=== PATIENT | female | born 1940 | race Caucasian/White ===

== ENCOUNTER 2016-04-25 11:54 | Emergency (ER) | payer BC ==
--- NOTE | 2016-04-25 12:24 | ER Document Report ---
ED Medical Screen (RME) - General Chief Complaint: Breathing Difficulty Stated Complaint: DIFFICULTY BREATHING Notes: h/o lung ca stage 4 h/o pleural and pericardial effusion Monday dyspnea and SUTHER[place], wheezing pleurx removed January on left side, never had one on her right I have greeted and performed a rapid initial assessment of this patient. A comprehensive ED assessment and evaluation of the patient, analysis of test results and completion of the medical decision making process will be conducted by additional ED providers. TRAVEL OUTSIDE OF THE [place] IN LAST 30 DAYS: No - Related Data Allergies/Adverse Reactions: No Known Allergies Allergy (Verified 04/25/16 12:21) Past Medical History - Past Medical History Cardiac Medical History: Reports: Hx Hypertension - on meds Denies: Hx Coronary Artery Disease, Hx Heart Attack Pulmonary Medical History: Reports: Hx Bronchitis, Hx COPD, Hx Pneumonia - 2013 Denies: Hx Asthma Neurological Medical History: Denies: Hx Cerebrovascular Accident, Hx Seizures Malignancy Medical History: Reports: Hx Lung Cancer - Stage III Musculoskeltal Medical History: Denies Hx Arthritis Psychiatric Medical History: Reports: Hx Depression Past Surgical History: Reports: Hx Vascular Surgery - Port-A-Cath placement - Immunizations Hx Diphtheria, Pertussis, Tetanus Vaccination: Yes Physical Exam - Vital signs Vitals: Temp Pulse Resp BP Pulse Ox 97.7 F 76 18 143/81 H 93 04/25/16 12:19 04/25/16 12:19 04/25/16 12:19 04/25/16 12:19 04/25/16 12:19 Course - Vital Signs Vital signs: Temp Pulse Resp BP Pulse Ox 97.7 F 76 18 143/81 H 93 04/25/16 12:19 04/25/16 12:19 04/25/16 12:19 04/25/16 12:19 04/25/16 12:19
[2016-04-25 12:45] LABS: ABSOLUTE LYMPHOCYTES (AUTO) 0.5 10^3/uL (0.5-4.7); ABSOLUTE MONOCYTES (AUTO) 0.7 10^3/uL (0.1-1.4); ABSOLUTE NEUT (AUTO) 3.8 10^3/uL (1.7-8.2); BASOPHILS % (AUTO) 0.8 % (0-2); EOSINOPHILS % (AUTO) 0.5 % (0-6); HEMATOCRIT 32.8 % (36.0-47.0); HEMOGLOBIN 10.9 g/dL (12.0-15.5); HGB HCT DIFFERENCE -0.1; LYMPHOCYTES % (AUTO) 9.5 % (13-45); MEAN CORPUSCULAR HEMOGLOBIN 31.3 pg (27.0-33.4); MEAN CORPUSCULAR HGB CONC 33.2 g/dL (32.0-36.0); MEAN CORPUSCULAR VOLUME 94 fl (80-97); MONOCYTES % (AUTO) 13.9 % (3-13); RED BLOOD COUNT 3.48 10^6/uL (3.72-5.28); RED CELL DISTRIBUTION WIDTH 16.5 % (11.5-14.0); SEGMENTED NEUTROPHILS % (AUTO) 75.3 % (42-78)
[2016-04-25 13:00] LABS: ALANINE AMINOTRANSFERASE 20 U/L (9-52); ALBUMIN 3.5 g/dL (3.5-5.0); ALKALINE PHOSPHATASE 81 U/L (38-126); ANION GAP 8 (5-19); ASPARTATE AMINO TRANSFERASE 17 U/L (14-36); BILIRUBIN,TOTAL 0.9 mg/dL (0.2-1.3); BLOOD UREA NITROGEN 9 mg/dL (7-20); CARBON DIOXIDE 32 mmol/L (22-30); CHLORIDE 99 mmol/L (98-107); CREATININE RESULT 0.69 mg/dL (0.52-1.25); GLUCOSE 92 mg/dL (75-110); POTASSIUM 4.3 mmol/L (3.6-5.0); SODIUM 138.8 mmol/L (137-145); TOTAL PROTEIN 6.4 g/dL (6.3-8.2)
[2016-04-25] MEDS ORDERED: IPRATROPIUM/ALBUTEROL 0.5-2.5 MG/3 ML AMPUL NEB ONE (14:20)
--- NOTE | 2016-04-25 14:22 | ER Document Report ---
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 Patient presents with progressive dyspnea on exertion over the past 3 days. She does have a nonproductive cough. She denies any fever. Her last chemotherapy was approximately [address] Membreno's office. TRAVEL OUTSIDE OF THE [place] IN LAST 30 DAYS: No - HPI Patient complains to provider of: COPD Onset: Other - Last 3 days Duration: No: Better, Continuous, Gone now, Intermittent episodes, Worse/ persistent Initiating Event: No: Allergy, Aspiration/Choking, Exertion, Exposure to chemicals, Exposure to dust, Exposure to fumes, Exposure to mold, Exposure to smoke, Out of meds, Sports/exercise, URI, Other Quality of pain: No pain Severity: None Pain Level: Denies Short of Breath: Moderate Chest pain/discomfort: Constant Cough: Nonproductive Sputum amount: denies: None, Scant, Small, Moderate, Large, Copious Sputum color: denies: Brown, Clear, Creamy, Valderrama, Green, Benkelman tinged, Red (blood ), Red Specks, Rust, Small Clots, Hinds, White, Yellow Sputum consistency: denies: Frothy, Mucoid, Mucoid Plug, Tenacious, Thick, Thin At home treatment: Bronchodilators EMS treatments: Bronchodilators Associated symptoms: Difficulty breathing. denies: Chills, Congestion, Fever Similar symptoms previously: Yes Recently seen / treated by doctor: Yes - Related Data Allergies/Adverse Reactions: No Known Allergies Allergy (Verified 04/25/16 12:24) Past Medical History - General Information source: Patient - Social History Smoking Status: Former Smoker Cigarette use (# per day): No Chew tobacco use (# tins/day): No Frequency of alcohol use: None Drug Abuse: None Lives with: Spouse/Significant other Family History: Reviewed & Not Pertinent Patient has suicidal ideation: No Patient has homicidal ideation: No - Past Medical History Cardiac Medical History: Reports: Hx Hypertension - on meds Denies: Hx Coronary Artery Disease, Hx Heart Attack Pulmonary Medical History: Reports: Hx Bronchitis, Hx COPD, Hx Pneumonia - 2013 Denies: Hx Asthma Neurological Medical History: Denies: Hx Cerebrovascular Accident, Hx Seizures Renal/ Medical History: Denies: Hx Peritoneal Dialysis Malignancy Medical History: Reports: Hx Lung Cancer - Stage III Musculoskeltal Medical History: Denies Hx Arthritis Psychiatric Medical History: Reports: Hx Depression Past Surgical History: Reports: Hx Vascular Surgery - Port-A-Cath placement - Immunizations Hx Diphtheria, Pertussis, Tetanus Vaccination: Yes Hx Pneumococcal Vaccination: 03/27/13 Review of Systems - Review of Systems Constitutional: denies: Chills, Fever EENT: No symptoms reported Cardiovascular: No symptoms reported Respiratory: See HPI Gastrointestinal: No symptoms reported Genitourinary: No symptoms reported Female Genitourinary: No symptoms reported Musculoskeletal: No symptoms reported Skin: No symptoms reported Hematologic/Lymphatic: No symptoms reported Neurological/Psychological: No symptoms reported Physical Exam - Vital signs Vitals: Temp Pulse Resp BP Pulse Ox 97.7 F 76 18 143/81 H 93 04/25/16 12:19 04/25/16 12:19 04/25/16 12:19 04/25/16 12:19 04/25/16 12:19 Notes: Physical exam: GENERAL: 35-year-old female, alert and oriented 3, appears weak. No pulsus paradoxus. HEAD: Atraumatic, normocephalic. EYES: Pupils equal round and reactive to light, extraocular movements intact, sclera anicteric, conjunctiva are normal. ENT: TMs normal, nares patent, oropharynx clear without exudates. Moist mucous membranes. NECK: Normal range of motion, supple without lymphadenopathy or JVD. LUNGS: Wheezing on the right side of the lungs, decreased breath sounds in the left. HEART: Regular rate and rhythm without murmurs, rubs or gallops. ABDOMEN: Soft, nontender, normoactive bowel sounds. No guarding, no rebound. No masses appreciated. EXTREMITIES: Normal range of motion, no pitting or edema. No clubbing or cyanosis. NEUROLOGICAL: Cranial nerves II through XII grossly intact. Normal speech, normal gait. PSYCH: Normal mood, normal affect. SKIN: Warm, Dry, normal turgor, no rashes or lesions noted. Course - Re-evaluation Re-evalutation: 04/25/16 17:14 Note: Patient's vital signs remained stable. Patient does comfortable lying in the stretcher, but she does appear short of breath when attempting to walk. Oxygen saturation was 93% on room air and she is 96-98% on [address] Membreno (oncologist) who is seen the patient in the emergency room. After review of the CT scan, is recommended transfer to [facility] (the patient has been followed by Dr. Grider in the past). Question is whether the patient can benefit from a possible left bronchial stent as well as possible pericardial window. 04/25/16 19:[address] Pickett of cardiology who has reviewed the echo. The echo does show a moderate size circumferential pericardial effusion without any echocardiographic signs of cardiac tamponade 04/25/16 21:07 Patient remains comfortable as long as she is in bed and not moving around. Her vital signs of been stable. 04/25/16 21:08 - Vital Signs Vital signs: Temp Pulse Resp BP Pulse Ox 97.7 F 76 18 138/93 H 98 04/25/16 12:19 04/25/16 12:19 04/25/16 17:01 04/25/16 17:01 04/25/16 17:01 - Laboratory Result Diagrams: 04/25/16 12:30 04/25/16 12:30 Laboratory results interpreted by me: 04/25/16 04/25/16 12:30 12:30 RBC 3.48 L Hgb 10.9 L Hct 32.8 L RDW 16.5 H Lymphocytes % 9.5 L Monocytes % 13.9 H Carbon Dioxide 32 H - Diagnostic Test Radiology reviewed: Image reviewed, Reports reviewed - CT of the chest shows mass affect on the left bronchus with collapse of the lung. There is either to large pericardial effusion. - EKG Interpretation by [place] Rhythm: NSR - EKG shows normal sinus rhythm Critical Care Note - Critical Care Note Total time excluding time spent on procedures (mins): 90 Discharge - Discharge Clinical Impression: pericardial effusion, left hilar mass, left main bronchus occlusion Condition: Serious Disposition: [place]
[2016-04-25] MEDS ORDERED: LEVOFLOXACIN 750 MG/D5W RTU 150 ML IV ONE (15:47)
--- NOTE | 2016-04-25 16:37 | PDOC CONSULTATION ---
Consultation Consult Date: 04/25/16 Attending physician:: MASOOD HEARD Consult reason:: Worsened SOB, S[place]HER[place] known stage IV lung ca w/ recent progression History of Present Illness Admission Date/PCP: HARRIS XIONG MD Patient complains of: SOB/SUTHER[place], Stage IV lung ca History of Present Illness: BRANDEN HUDDLESTON is a 75 year old female w/ known hx of stage IV lung cancer s/p 3 lines of chemotherapy recently s/p 4th line therapy w/ Taxotere x 2 cycles , here w/ acute worsening of SOB/SUTHER[place], progressive x 2 weeks, seen last week in our office and chemo held at that time and given oral antibiotics. She called this am and 02 level low and could not really move around w/out extreme SOB. Pt had CTA chest done, unfortunately now w/ complete L lung collapse, known hx of L hilar LAD w/ progression, also per my view, progression of pericardial malignant effusion also. She is currently on 4L o2 and sat is >92%. Past Medical History Cardiac Medical History: Reports: Hypertension - on meds Denies: Coronary Artery Disease, Myocardial Infarction Pulmonary Medical History: Reports: Bronchitis, Chronic Obstructive Pulmonary Disease (COPD), Pneumonia - 2013 Denies: Asthma Neurological Medical History: Denies: Seizures Malignancy Medical History: Reports: Lung Cancer - Stage III Musculoskeltal Medical History: Denies: Arthritis Psychiatric Medical History: Reports: Depression Hematology: Denies: Anemia Past Surgical History Past Surgical History: Reports: Vascular Surgery - Port-A-Cath placement, Other - bronch w/ bx recent biliary stent Social History Smoking Status: Former Smoker Frequency of Alcohol Use: None Hx Recreational Drug Use: No Hx Prescription Drug Abuse: No - Advance Directive Resuscitation Status: Full Code Family History Family History: Reviewed & Not Pertinent Parental Family History Reviewed: Yes Children Family History Reviewed: Yes Sibling(s) Family History Reviewed.: Yes Medication/Allergy Home Medications: Atenolol [Tenormin 50 mg Tablet] 50 mg PO QHS 12/12/13 Fluoxetine HCl 20 mg PO DAILY 12/12/13 Lisinopril 10 mg PO QHS 12/12/13 Omeprazole 40 mg PO DAILY 12/12/13 Simvastatin 20 mg PO QHS 12/12/13 Budesonide/Formoterol Fumarate [Symbicort Hfa 160-4.5 Mcg Inhaler 6 gm] 2 puff IH Q12 07/18/14 Calcium Carbonate [Calcium] 600 mg PO BID 07/18/14 Cetirizine HCl [Zyrtec 10 mg Tablet] 1 tab PO DAILY PRN 07/18/14 Folic Acid 1 mg PO DAILY 07/18/14 Budesonide [Pulmicort Neb 0.5 mg/2 ml Ampul] 1 dose IH BID 01/16/15 Guaifenesin [Mucinex Sr 600 mg Tablet.sa] 1 tab PO DAILY PRN 01/16/15 Allergies/Adverse Reactions: No Known Allergies Allergy (Verified 04/25/16 12:24) Review of Systems Constitutional: PRESENT: anorexia, fatigue, weakness Cardiovascular: PRESENT: dyspnea on exertion Respiratory: PRESENT: cough, dyspnea Gastrointestinal: ABSENT: abdominal pain, constipation, diarrhea, hematemesis, hematochezia, nausea, vomiting Neurological: ABSENT: abnormal gait, abnormal speech, confusion, dizziness, focal weakness, syncope Endocrine: ABSENT: cold intolerance, heat intolerance, polydipsia, polyuria Physical Exam Vital Signs: Temp Pulse Resp BP Pulse Ox 97.7 F 76 18 132/88 H 99 04/25/16 12:19 04/25/16 12:19 04/25/16 15:37 04/25/16 15:37 04/25/16 15:37 Intake & Output 04/24/16 04/25/16 04/26/16 06:59 06:59 06:59 Weight 88.6 kg General appearance: PRESENT: mild distress Head exam: PRESENT: atraumatic Respiratory exam: PRESENT: decreased breath sounds, other - no BS on L side Cardiovascular exam: PRESENT: tachycardia GI/Abdominal exam: PRESENT: normal bowel sounds, soft. ABSENT: distended, guarding, mass, organolmegaly, rebound, tenderness Rectal exam: PRESENT: deferred Extremities exam: PRESENT: full ROM. ABSENT: calf tenderness, clubbing, pedal edema Neurological exam: PRESENT: alert, awake, oriented to person, oriented to place , oriented to time, oriented to situation, CN II-XII grossly intact. ABSENT: motor sensory deficit Results Laboratory Results: 04/25/16 12:30 04/25/16 12:30 04/25/16 04/25/16 04/25/16 12:30 12:30 12:30 WBC 5.0 RBC 3.48 L Hgb 10.9 L Hct 32.8 L MCV 94 MCH 31.3 MCHC 33.2 RDW 16.5 H Plt Count 199 Seg Neutrophils % 75.3 Lymphocytes % 9.5 L Monocytes % 13.9 H Eosinophils % 0.5 Basophils % 0.8 Absolute Neutrophils 3.8 Absolute Lymphocytes 0.5 Absolute Monocytes 0.7 Absolute Eosinophils 0.0 Absolute Basophils 0.0 Sodium 138.8 Potassium 4.3 Chloride 99 Carbon Dioxide 32 H Anion Gap 8 BUN 9 Creatinine 0.69 Est GFR ( Amer) > 60 Est GFR (Non-Af Amer) > 60 Glucose 92 Calcium 9.0 Magnesium 1.9 Total Bilirubin 0.9 AST 17 ALT 20 Alkaline Phosphatase 81 Total Protein 6.4 Albumin 3.5 Impressions: Chest/Abdomen CTA 04/25/16 12:24 IMPRESSION: Right upper lobe alveolar and interstitial infiltrate edema versus pneumonia. New small right pleural effusion Moderate to large pericardial effusion Left hilar mass now occludes the left mainstem bronchus with collapse and consolidation throughout the left lung. Small loculated anterior left pleural effusion Status: Image reviewed by me Assessment & Plan - Diagnosis (1) Hypoxemic respiratory failure, chronic Is this a current diagnosis for this admission?: YesPlan: Likely 2nd to disease progression and complete lung collapse, suggested transfer to [facility] for consideration of endobronchial stent and consideration of pericardiocentesis. She was functional w/ PS 2 prior to last 2 weeks so would be reasonable to pursue more aggressive intervention. Had long discussion >70 min w/ pt and family today who agree w/ pursuing this approach. If [facility] w/out beds then will check w/ william. (2) Lung cancer Qualifiers: Laterality: left Is this a current diagnosis for this admission?: YesPlan: Stage IV lung ca, had extensive rx thus far. Would plan further rx if those procedures could improve her PS. Of note d/w Dr. Grider who notes the bx from biliary stenting maybe c/w pancreatic ca so that maybe another chemo/rx route to pursue. - Time Time Spent: Greater than 70 Minutes Critical Time spent with patient: 35 or more minutes Anticipated discharge: [facility]: when bed available - Inpatient Certification Based on my medical assessment, after consideration of the patient's comorbidities, presenting symptoms, or acuity I expect that the services needed warrant INPATIENT care.: Yes I certify that my determination is in accordance with my understanding of Medicare's requirements for reasonable and necessary INPATIENT services [42 CFR 412.3e].: Yes Medical Necessity: Failure to Improve With Outpatient Therapy, Need Close Monitoring Due to Risk of Patient Decompensation, Need For Continuous Telemetry Monitoring, Need for Nebulizer Therapy and Monitoring of Response, Risk of Complication if Not Cared For in Hospital
--- NOTE | 2016-04-25 20:43 | XCELERA REPORT ---
[address] [address] Transthoracic Echocardiogram Report Name: BRANDEN HUDDLESTON Age: 75 yrs Gender: Female : 1940 Patient Status: Emergency Patient Location: ER Study Date: 04/25/2016 05:57 PM Height: 68 in Weight: 195 lb BSA: 2.0 m2 Procedure: A complete two-dimensional transthoracic echocardiogram was performed (2D, M-mode, spectral and color flow Doppler). The study was technically difficult with many images being suboptimal in quality. Reason For Study: r/o pericardial tamponade Ordering Physician: MASOOD HEARD Performed By: Yin Tavera Interpretation Summary The study was technically difficult with many images being suboptimal in quality. The left ventricular ejection fraction is normal. LV diastolic function could not be adequately assessed. There is borderline concentric left ventricular hypertrophy. The left ventricle is grossly normal size. Wall motion cannot be accurately commented on, but no definite regional wall motion abnormalities noted. The right ventricle appears to be hypertrophied The right ventricle is grossly normal size. The right ventricular systolic function is normal. The right atrium is normal in size The left atrial size is normal. There is no mitral valve stenosis. There is a trace amount of mitral regurgitation There is no aortic valve stenosis No aortic regurgitation is present. There is no tricuspid stenosis. There is a trace or physiologic amount of tricuspid regurgitation The aortic root is not well visualized. The inferior vena cava appeared normal and decreased < 50% with respiration (RAP 10-15 mmHg) Moderate pericardial effusion. No RV Diastolic collapse noted. RA systolic collapse noted. A circumferential pericardial effusion is noted1-1.5 cms around. Avoid Diuretics. Doppler Measurements \T\ Calculations TR max ruma: 188.7 cm/sec PA pr(Accel): 26.7 mmHg PA acc slope: 611.7 cm/sec2TR max P.2 mmHg PA acc time: 0.12 sec Left Ventricle The left ventricle is grossly normal size. There is borderline concentric left ventricular hypertrophy. The left ventricular ejection fraction is normal. LV diastolic function could not be adequately assessed. Wall motion cannot be accurately commented on, but no definite regional wall motion abnormalities noted. Right Ventricle The right ventricle is grossly normal size. The right ventricle appears to be hypertrophied. The right ventricular systolic function is normal. Atria The right atrium is normal in size. The left atrial size is normal. Interarterial septum not well visualized and not well dopplered. Cannot comment on ASD/PFO presence. Mitral Valve The mitral valve is grossly normal. There is no mitral valve stenosis. There is a trace amount of mitral regurgitation. Aortic Valve The aortic valve is not well visualized secondary to technical limitations. There is no aortic valve stenosis. No aortic regurgitation is present. Tricuspid Valve The tricuspid valve is not well visualized secondary to technical limitations. There is no tricuspid stenosis. There is a trace or physiologic amount of tricuspid regurgitation. Pulmonic Valve The pulmonic valve is not well visualized. Great Vessels The aortic root is not well visualized. The inferior vena cava appeared normal and decreased < 50% with respiration (RAP 10-15 mmHg). Effusions Moderate pericardial effusion. No RV Diastolic collapse noted. RA systolic collapse noted. A circumferential pericardial effusion is noted. : MASOOD HEARD > Meghan Pickett
[2016-04-25 22:11] VITALS: BP 116/85
--- NOTE | 2016-04-26 00:06 | EKG REPORT ---
SEVERITY:- ABNORMAL ECG - SINUS RHYTHM LOW VOLTAGE THROUGHOUT NONSPECIFIC T ABNORMALITIES, ANT-LAT LEADS : Confirmed by: Meghan Pickett 26-Apr-2016 00:05:26
== END 2016-04-25 22:57 | disposition short-term general hospital (02) ==
LOC: ER 11:54
DX: J96.11 Chronic respiratory failure with hypoxia (principal); C34.92 Malignant neoplasm of unspecified part of left bronchus or lung; I31.3 Pericardial effusion (noninflammatory); R06.00 Dyspnea, unspecified; I10 Essential (primary) hypertension; J44.9 Chronic obstructive pulmonary disease, unspecified
CPT/HCPCS: 93005; 94640; 99291; 99292; 96365; 36415; 87040; 83735; 85025; 80053; 93306; 71275; 93010; J1956; J7620